=== PATIENT | male | born 1940 | race Caucasian/White ===

== ENCOUNTER → 2017-06-04 | Outpatient (CLI) | payer MEDICARE, MEDICAID ==
[~2017-06-04] MED LIST: ATENOLOL50 M1 PO; HYDROCODONE-APA1 TA1 PO; LISINOP/HCTZ TAB 20- PO; LISINOPRIL AND1 TAB PO; OMEPRAZOLE20 MG PO
[2017-06-04 13:45] LABS: HEMOGLOBIN 12.3 g/dL (14.1-18.0); LYMPH # 1.8 K/mm3 (0.7-4.5); LYMPH % 22.7 % (10-50)
[2017-06-04 16:04] LABS: BUN 34 mg/dL (7-18)
[2017-06-04 16:13] LABS: GFR (ESTIMATED) 34 ML/MIN (>60)
--- NOTE | 2017-06-04 21:12 | RADIOLOGY REPORT PS360 ---
CHEST(2 VIEWS-NOT PORTABLE) Ordering physician: Max Christianson APRN Age: 77 years Male INDICATION: chest symptomsSMOKER,WEIGHT LOSS PROCEDURE: CHEST(2 VIEWS-NOT PORTABLE) FINDINGS: Previous chest film 12/17/2015 Lungs mildly hyperexpanded but clear with nothing definitely acute..No significant new findings. Hyperexpansion likely reflect developing COPD.. No pneumothorax. No pleural effusion. Mild pectus as the bottom may accentuate cardiac silhouette borderline cardiomegaly. Normal pulmonary vascularity. Hilar and mediastinal structures appear satisfactory. Chest wall unremarkable. T-spine intact. IMPRESSION ----- Stable chest with nothing definitely acute. Lungs mildly hyperexpanded but clear.
== END ==
LOC: LAB 11:41
PROVIDERS: Nurse Practitioner Family
DX: F17.200 Nicotine dependence, unspecified, uncomplicated (principal); R63.4 Abnormal weight loss; Z79.899 Other long term (current) drug therapy

== ENCOUNTER → 2017-06-22 | Outpatient (CLI) | payer MEDICARE, MEDICAID ==
[2017-06-22 18:43] LABS: BUN 25 mg/dL (7-18)
[2017-06-22 19:09] LABS: GFR (ESTIMATED) 39 ML/MIN (>60)
== END ==
LOC: LAB 14:49
PROVIDERS: Emergency Medicine
DX: Z86.39 Personal history of other endocrine, nutritional and metabolic disease (principal)